=== PATIENT | male | born 1970 | race Caucasian/White ===

== ENCOUNTER 2016-09-08 09:12 | Day surgery (SDC) | payer BC ==
--- NOTE | 2016-09-08 08:11 | HP ---
DATE OF SURGERY: 09/08/2016 HISTORY OF PRESENT ILLNESS: The patient is a 46 year-old having some left-sided abdominal pain. No evidence of any large hernia on CT scan, scattered small mesenteric nodes question of adenitis, calcified splenic granulomas, otherwise fairly unremarkable CT scan of the abdomen and pelvis. He had some persistent left abdominal pain of unclear etiology going from his left upper quadrant down to left groin. No obvious large palpable hernia or hernia visible on the CT scan other than a small amount of a little fat at his umbilical area which he is not having symptoms in that area. I feel he would benefit from colonoscopy for further evaluation. PAST MEDICAL HISTORY: Hypertension. PAST SURGICAL HISTORY: Denied. MEDICATIONS: Blood pressure medication and aspirin. ALLERGIES: NKDA. FAMILY HISTORY: Heart disease and cancer. SOCIAL HISTORY: Zero packs per day smoker. He does drink some alcohol denies abuse. REVIEW OF SYSTEMS: Twelve systems reviewed per admission assessment. No chest pain or palpitations other systems negative or noncontributory as above and per preadmission questionnaire. He has had history of bulging of disc and some chronic aches and pains of his back in the past. PHYSICAL EXAMINATION: GENERAL: No acute distress. HEENT: Sclerae nonicteric. NECK: No JVD. CHEST: Equal excursion, nonlabored breathing. CVS: Regular rate and rhythm. ABDOMEN: Soft, question whether he has a very small left inguinal hernia not seen on CT scan. It does not seem to account for his left upper quadrant area aches and pains symptoms. No other tenderness at all left upper quadrant, left mid abdomen for the most part. It down a little bit towards the groin but mostly mid to upper left abdomen. EXTREMITIES: No edema. NEURO: Alert, moving extremities symmetrically. No gross motor deficits noted. IMPRESSION: Left-sided abdominal pain question whether there is a small hernia but not convinced that it is causing all the degree of symptoms at the left side of his body. I feel he would benefit from colonoscopy for evaluation to rule out colitis, inflammatory bowel disease or other etiology as cause of his symptoms. He agrees. Risks and benefits explained in detail including but not limited to bleeding or infection, risk of bowel injury or perforation possibly requiring open procedure, small risk of missed or nondiagnosis or incomplete exam possibly requiring barium enema, other studies or procedures, general risk of anesthesia or sedation, risk of bowel prep, postoperative risk of nausea, vomiting, cramping but not limited to as well as the possibility of inability to diagnose the etiology of degree of symptoms at the left side of his body. He understands and agrees to the planned procedure and will proceed with outpatient colonoscopy under MAC anesthesia.
[~2016-09-08 09:12] MED LIST: DIPRIVAN 200 MG/20 ML IV ONE; Ketamine HCl 50 MG/ML IJ ONE
[2016-09-08] MEDS ORDERED: Lactated Ringers 1,000 ML IV SCH (10:00)
[2016-09-08] MEDS ORDERED: Lactated Ringers 0 ML IV ONE (11:21)
[2016-09-08 14:28] VITALS: PULSE 65
[2016-09-08 14:38] VITALS: BP 120/64; O2SAT 100
--- NOTE | 2016-09-08 15:36 | OP ---
SURGERY DATE/TIME: 09/08/2016 1045 PREOPERATIVE DIAGNOSIS: History of left-side abdominal pain unclear etiology. POSTOPERATIVE DIAGNOSES: 1) Poor prep limiting the exam. 2) Slight erythema cecum and ascending colon. 3) Very tortuous colon. 4) Mild diverticulosis. 5) Small internal and external hemorrhoids. PROCEDURES: 1) Colonoscopy to terminal ileum. 2) Retrograde ileoscopy. 3) Random cold biopsy cecum and ascending colon to evaluate for microscopic colitis. 4) Random cold biopsy of left colon to evaluate for microscopic colitis. SURGEON: Dr. Kvng Tolentino. ANESTHESIA: MAC. ESTIMATED BLOOD LOSS: Minimal. INDICATIONS: As noted above. Risks and benefits explained in detail but not limited to and consent obtained. DESCRIPTION OF PROCEDURE AND FINDINGS: The patient is taken to the operating room. MAC anesthesia introduced. After official time out and no disagreement with the planned procedure. Digital rectal exam did not reveal any rectal masses. He had some small internal and external hemorrhoids. Video colonoscope inserted and passed up through the very tortuous poorly prepped colon with liquidy semisolid stool limiting the exam. The scope is slowly and carefully advanced over through the ascending colon. However it required position change on the back and multiple staff members pushing on the abdomen to reduce the loops to allow the scope to go forward to the cecum. Appendiceal orifice and valve were well visualized. The scope was able to be passed up the terminal ileum which was grossly unremarkable. Retrograde ileoscopy performed. No signs of any obvious Crohn's disease or inflammatory bowel changes, normal appearing ileum. The scope was carefully withdrawn. Again the prep was poor limiting the exam. The colon was tortuous. Slow careful withdrawal of the scope over the next 15 to 20 minutes, there was a slight erythema in the cecum and ascending colon. Random cold biopsies taken to evaluate for microscopic colitis. Slow careful withdrawal of the scope, there were no signs of any large polyps, masses or obstructing lesions. Again the very poor prepped colon did limit the exam. Some random cold biopsies were also taken throughout the left colon to evaluate for microscopic colitis and some minimal to mild diverticulosis just the small internal and external hemorrhoids. Again no signs of any large polyps, masses or obstructing lesions but again the poor prep did limit the exam. The scope is withdrawn. The patient tolerated the procedure well. There were no immediate complications.
== END 2016-09-08 12:45 | disposition home or self-care (01) ==
LOC: SDC 09:12
PROVIDERS: ATTEND Surgery
PROC: 0DBK8ZX Excision of Ascending Colon, Via Natural or Artificial Opening Endoscopic, Diagnostic (ICD-10-PCS; principal; 2016-09-08)
PROC: 0DBG8ZX Excision of Left Large Intestine, Via Natural or Artificial Opening Endoscopic, Diagnostic (ICD-10-PCS; 2016-09-08)
PROC: 0DBH8ZX Excision of Cecum, Via Natural or Artificial Opening Endoscopic, Diagnostic (ICD-10-PCS; 2016-09-08)
DX: R10.9 Unspecified abdominal pain (principal); K57.90 Diverticulosis of intestine, part unspecified, without perforation or abscess without bleeding; K64.4 Residual hemorrhoidal skin tags; K64.8 Other hemorrhoids
CPT/HCPCS: 00810; 36415; 88305; J2704

== ENCOUNTER 2016-10-27 08:48 | Day surgery (SDC) | payer BC ==
--- NOTE | 2016-10-27 07:47 | HP ---
DATE OF SURGERY: 10/27/2016 HISTORY OF PRESENT ILLNESS: The patient is a 46 year-old with some left-sided abdominal aches and pains. He has had some persistent symptoms, had a prior colonoscopy now is in need of upper endoscopy for further evaluation to rule out gastritis, ulcer disease or other etiology. He had inflammatory bowel disease and GI studies showed nonconsistent with inflammatory bowel disease. PAST MEDICAL HISTORY: Hypertension. MEDICATIONS: Blood pressure medication, aspirin. ALLERGIES: NKDA. PAST SURGICAL HISTORY: Colonoscopy in the past. FAMILY HISTORY: Heart disease, cancer. SOCIAL HISTORY: No smoking or alcohol abuse. He drinks alcohol but denies abuse. REVIEW OF SYSTEMS: Twelve systems reviewed per admission assessment. No chest pain or palpitations other systems negative or noncontributory as above and per preadmission questionnaire. PHYSICAL EXAMINATION: GENERAL: No acute distress. HEENT: Sclerae nonicteric. NECK: No JVD. CHEST: Equal excursion, nonlabored breathing. CVS: Regular rate and rhythm. ABDOMEN: Soft, mild tenderness left upper abdomen. No peritoneal signs. EXTREMITIES: No significant edema. NEURO: Alert, moving extremities symmetrically. No gross motor deficits noted. IMPRESSION: Left abdominal pain. Colonoscopy did not elicit the etiology of his symptoms. I feel he will benefit from upper endoscopy to rule out gastritis or ulcer disease versus other etiology. Risks and benefits explained in detail but not limited to bleeding or infection, small risk of bowel injury or perforation possibly requiring open procedure, small risk of missed or nondiagnosis or inability to diagnose the etiology of his symptoms. He understands and agrees to the planned procedure and will proceed with EGD and possible biopsy as an outpatient.
[2016-10-27] MEDS ORDERED: Sodium Chloride 0.9% 1000 ML 1,000 ML ONE (09:03)
[2016-10-27] MEDS ORDERED: Sodium Chloride 0.9% 1000 ML 1,000 ML IV SCH (09:15)
[2016-10-27 11:29] VITALS: BP 115/61; PULSE 81; O2SAT 94
[2016-10-27] MEDS ORDERED: VERSED 5 MG/5 ML IV ONE (12:00)
[2016-10-27] MEDS ORDERED: DEMEROL 50 MG IV ONE (12:00)
--- NOTE | 2016-10-28 08:04 | OP ---
SURGERY DATE/TIME: 10/27/2016 1011 PREOPERATIVE DIAGNOSIS: History of some left abdominal pain, left upper quadrant pain unclear etiology. POSTOPERATIVE DIAGNOSES: 1) Mild gastritis. 2) Minimal to mild duodenitis. 3) Small gastric polyp versus fundal gland polyp, path pending. 4) Short segment possibly early distal gastroesophagitis versus variation of a normal gastroesophageal junction. PROCEDURES: 1) EGD with cold biopsy of small bowel to evaluate for sprue. 2) Cold biopsy of the antrum to evaluate for Helicobacter pylori. 3) Cold biopsy small gastric polyp versus fundal gland polyp, path pending. 4) Cold biopsy distal esophagus to evaluate for gastroesophagitis versus early Bates's versus normal variation of gastroesophageal junction. SURGEON: Dr. Kvng Tolentino. ANESTHESIA: IV sedation IV Demerol and Versed. ESTIMATED BLOOD LOSS: Minimal. INDICATIONS: As noted above. Risks and benefits explained in detail and not limited to and consent obtained. DESCRIPTION OF PROCEDURE AND FINDINGS: The patient is taken to the operating room. IV Demerol and Versed initially and then given additional IV Versed. Slowly and carefully the posterior pharynx sprayed with Benzocaine spray. Bite block positioned. After official time out and no disagreement with planned procedure, video gastroscope easily passed over the back of the tongue and down the esophagus through the patent pylorus to the junction of the second and third portion of the duodenum. The second and third portion of the duodenum grossly unremarkable. Back in the proximal duodenum there was some minimal to mild duodenitis. No evidence of any ulcers. The scope pulled back in the stomach. He had some mild gastritis. Cold biopsy taken to evaluate for Helicobacter pylori. Otherwise on retroflex there was no evidence of any large hiatal hernia. The gastroesophageal junction is fairly snug against the scope in retroflex. There were no signs of any large masses. No signs of any ulcers. There was a little small mid gastric body polyp possibly fundal gland polyp removed with cold biopsy forceps. Good hemostasis noted. The scope is pulled back and the gastroesophageal junction noted to be about 41 cm with a short segment and possibly early distal gastroesophagitis versus early metaplasia, Bates's versus normal variation of gastroesophageal junction. Cold biopsy taken for further evaluation. Good hemostasis noted. The remainder of the esophagus grossly unremarkable. No signs of any obvious other mucosal lesions on withdrawal of the scope. The patient tolerated the procedure well. There were no immediate complications.
== END 2016-10-27 11:30 | disposition home or self-care (01) ==
LOC: SDC 08:48
PROVIDERS: ATTEND Surgery
PROC: 0DB88ZX Excision of Small Intestine, Via Natural or Artificial Opening Endoscopic, Diagnostic (ICD-10-PCS; principal; 2016-10-27)
PROC: 0DB78ZX Excision of Stomach, Pylorus, Via Natural or Artificial Opening Endoscopic, Diagnostic (ICD-10-PCS; 2016-10-27)
PROC: 0DB38ZX Excision of Lower Esophagus, Via Natural or Artificial Opening Endoscopic, Diagnostic (ICD-10-PCS; 2016-10-27)
PROC: 0DB68ZX Excision of Stomach, Via Natural or Artificial Opening Endoscopic, Diagnostic (ICD-10-PCS; 2016-10-27)
DX: K29.70 Gastritis, unspecified, without bleeding (principal); K29.80 Duodenitis without bleeding; K31.7 Polyp of stomach and duodenum; K20.8 Other esophagitis
CPT/HCPCS: 36415; 88305; J2175; J2250